=== PATIENT | male | born 1975 ===

== ENCOUNTER 2019-07-24 17:44 | Inpatient (IN) | payer OTHER ==
[~2019-07-24] VITALS: Ht 175.3 cm; Wt 52.4 kg
[2019-07-24] MEDS ORDERED: GENVOYA TABLET1 EACH PO (18:10)
[2019-07-24 18:55] LABS: BASO % 0.1 % (0.0-2.0); EOS # 0.3 (0.0-0.7); EOS % 1.4 % (0-4.0); GRAN # 15.1 (1.4-6.5); GRAN % 80.9 % (42.2-75.2); HEMOGLOBIN 12.6 g/dl (13.5-18.0); LYMPH # 1.9 (1.2-3.4); LYMPH % 10.1 % (20.0-51.0); MEAN CELL VOLUME 93 fl (80.0-100.0); MEAN CORPUSCULAR HEMOGLOBIN 31 pg (27.0-31.0); MEAN CORPUSCULAR HGB CONC 33 g/dl (33.0-37.0); MEAN PLATELET VOLUME 9.2 fl (7.4-10.4); MONO # 1.3 (0.1-0.6); PLATELET COUNT 407 K/mm3 (130-400); RED BLOOD COUNT 4.09 M/mm3 (4.20-5.60); REDCELL DISTRIBUTION WIDTH-CV 13.2 % (11.5-14.5)
[2019-07-24 19:10] LABS: ALBUMIN 4.1 gm/dL (3.5-5.0); BILIRUBIN,TOTAL 0.6 mg/dL (0.0-1.0); CALCIUM 9.3 mg/dL (8.4-10.2); CREATININE, serum 0.91 (0.66-1.25); POTASSIUM 3.7 mmol/L (3.4-5.0); TOTAL PROTEIN 7.6 gm/dL (6.4-8.2)
[2019-07-24 21:00] VITALS: BP 103/62; PULSE 107; TEMP 99.2
[2019-07-25] VITALS: BP 100/56; PULSE 76; TEMP 98.4
[2019-07-25 04:30] VITALS: BP 97/57; PULSE 87; TEMP 97.6
[2019-07-25 07:15] LABS: HEMOGLOBIN 11.9 g/dl (13.5-18.0); MEAN CELL VOLUME 94 fl (80.0-100.0); MEAN CORPUSCULAR HEMOGLOBIN 31 pg (27.0-31.0); MEAN CORPUSCULAR HGB CONC 33 g/dl (33.0-37.0); MEAN PLATELET VOLUME 9.6 fl (7.4-10.4); PLATELET COUNT 391 K/mm3 (130-400); RED BLOOD COUNT 3.88 M/mm3 (4.20-5.60); REDCELL DISTRIBUTION WIDTH-CV 13.4 % (11.5-14.5)
[2019-07-25 07:16] LABS: HEMATOCRIT 36.4 % (42.0-52.0)
[2019-07-25 07:37] LABS: CALCIUM 8.3 mg/dL (8.4-10.2); CREATININE, serum 0.79 (0.66-1.25); POTASSIUM 4.1 mmol/L (3.4-5.0)
[2019-07-25 07:50] VITALS: BP 99/59; PULSE 75; TEMP 98
[2019-07-25 10:22] LABS: PH 6 (5-8); SQUAMOUS EPITHELIAL None Seen /hpf; URINE APPEARANCE Clear; URINE BACTERIA None Seen /hpf; URINE BILIRUBIN Negative (NEGATIVE); URINE BLOOD Negative (NEGATIVE); URINE COLOR Yellow; URINE GLUCOSE Negative (NEGATIVE); URINE KETONE Negative (NEGATIVE); URINE LEUKOCYTE ESTERASE Negative (NEGATIVE); URINE NITRATE Negative (NEGATIVE); URINE PROTEIN(semi-quant) Negative (NEGATIVE); URINE RBC 0-2 /hpf; URINE UROBILINOGEN Negative (NEGATIVE)
[2019-07-25 10:32] LABS: COLLECTION METHOD CLEAN CATCH
[2019-07-25 10:45] LABS: TRICYCLIC ANTIDEPRESS URINE NEGATIVE
[2019-07-25 11:56] VITALS: BP 108/70; PULSE 73; TEMP 97.7
[2019-07-25 15:01] VITALS: BP 99/62; PULSE 82; TEMP 97.8
[2019-07-25 19:45] VITALS: BP 106/63; PULSE 79; TEMP 98.3
[2019-07-26 00:10] VITALS: BP 99/56; PULSE 78; TEMP 98
[2019-07-26 05:00] VITALS: BP 102/58; PULSE 78; TEMP 97.7
[2019-07-26 06:12] LABS: BASO % 0.1 % (0.0-2.0); EOS # 0.3 (0.0-0.7); EOS % 4.1 % (0-4.0); GRAN # 4.5 (1.4-6.5); GRAN % 62.6 % (42.2-75.2); HEMOGLOBIN 12.3 g/dl (13.5-18.0); LYMPH # 1.8 (1.2-3.4); LYMPH % 24.8 % (20.0-51.0); MEAN CELL VOLUME 95 fl (80.0-100.0); MEAN CORPUSCULAR HEMOGLOBIN 31 pg (27.0-31.0); MEAN CORPUSCULAR HGB CONC 32 g/dl (33.0-37.0); MEAN PLATELET VOLUME 9.4 fl (7.4-10.4); MONO # 0.6 (0.1-0.6); PLATELET COUNT 382 K/mm3 (130-400); RED BLOOD COUNT 4.01 M/mm3 (4.20-5.60); REDCELL DISTRIBUTION WIDTH-CV 13.4 % (11.5-14.5)
[2019-07-26 06:31] LABS: CALCIUM 8.7 mg/dL (8.4-10.2); CREATININE, serum 0.68 (0.66-1.25); POTASSIUM 4.1 mmol/L (3.4-5.0)
[2019-07-26 07:23] VITALS: BP 102/74; PULSE 82; TEMP 97.4
[2019-07-26 09:32] LABS: T HELPER (CD4) INDUCER CELLS 36.3 % (29.0-59.0)
[2019-07-26 11:41] VITALS: BP 122/62; PULSE 77; TEMP 97.8
[2019-07-26 16:27] VITALS: BP 105/63; PULSE 75; TEMP 98
[2019-07-26 20:34] VITALS: BP 106/59; PULSE 72; TEMP 97.4
[2019-07-27 00:06] VITALS: BP 95/61; PULSE 72; TEMP 97.4
[2019-07-27 04:34] VITALS: BP 11/62; PULSE 61; TEMP 97.7
[2019-07-27 06:37] LABS: BASO % 0.6 % (0.0-2.0); EOS # 0.3 (0.0-0.7); EOS % 6.4 % (0-4.0); GRAN # 2.5 (1.4-6.5); GRAN % 49.5 % (42.2-75.2); HEMATOCRIT 42.5 % (42.0-52.0); HEMOGLOBIN 13.7 g/dl (13.5-18.0); LYMPH # 1.8 (1.2-3.4); LYMPH % 35.5 % (20.0-51.0); MEAN CELL VOLUME 95 fl (80.0-100.0); MEAN CORPUSCULAR HEMOGLOBIN 31 pg (27.0-31.0); MEAN CORPUSCULAR HGB CONC 32 g/dl (33.0-37.0); MEAN PLATELET VOLUME 9.5 fl (7.4-10.4); MONO # 0.4 (0.1-0.6); MONO % 7.6 % (1.7-9.3); PLATELET COUNT 422 K/mm3 (130-400); RED BLOOD COUNT 4.46 M/mm3 (4.20-5.60); REDCELL DISTRIBUTION WIDTH-CV 13.5 % (11.5-14.5)
[2019-07-27 06:55] LABS: CALCIUM 9.7 mg/dL (8.4-10.2); CREATININE, serum 0.79 (0.66-1.25); POTASSIUM 4.4 mmol/L (3.4-5.0)
[2019-07-27 07:38] VITALS: BP 111/71; PULSE 78; TEMP 97.8
[2019-07-27] MEDS ORDERED: ZITHROMAX 250M250 MG PO (09:31)
== END 2019-07-27 11:00 | disposition home or self-care (01) | DRG 202 ==
LOC: COL.ER 17:44 → MEDICAL 20:22
PROVIDERS: Emergency Medicine; Physician Assistant; ADMIT Student in an Organized Health Care Education/Training Program
DX: J40 Bronchitis, not specified as acute or chronic (principal); E46 Unspecified protein-calorie malnutrition; R65.10 Systemic inflammatory response syndrome (SIRS) of non-infectious origin without acute organ dysfunction; Z21 Asymptomatic human immunodeficiency virus [HIV] infection status; F17.210 Nicotine dependence, cigarettes, uncomplicated; Z88.5 Allergy status to narcotic agent
CPT/HCPCS: 99231-AI; 99232-AI; 99239; A4216; J0692; J0696; J1650; J2543; J3370; J7030; J7050

== ENCOUNTER 2020-02-28 19:32 | Emergency (ER) | payer OTHER ==
[~2020-02-28] VITALS: Ht 175.3 cm; Wt 58.2 kg
[~2020-02-28 19:32] MED LIST: GENVOYA TABLET1 EACH PO; ZITHROMAX 250M250 MG PO
[2020-02-28 20:12] LABS: BASO % 0.4 % (0.0-2.0); EOS # 0.8 (0.0-0.7); EOS % 11.1 % (0-4.0); GRAN # 2.8 (1.4-6.5); GRAN % 39.4 % (42.2-75.2); HEMATOCRIT 44.1 % (42.0-52.0); HEMOGLOBIN 14.6 g/dl (13.5-18.0); LYMPH % 42.9 % (20.0-51.0); MEAN CELL VOLUME 95 fl (80.0-100.0); MEAN CORPUSCULAR HEMOGLOBIN 32 pg (27.0-31.0); MEAN CORPUSCULAR HGB CONC 33 g/dl (33.0-37.0); MEAN PLATELET VOLUME 9.6 fl (7.4-10.4); MONO # 0.4 (0.1-0.6); MONO % 6.1 % (1.7-9.3); PLATELET COUNT 320 K/mm3 (130-400); RED BLOOD COUNT 4.64 M/mm3 (4.20-5.60); REDCELL DISTRIBUTION WIDTH-CV 12.8 % (11.5-14.5)
[2020-02-28 20:24] LABS: ALANINE AMINOTRANSFERASE 17 U/L (4-49); ALBUMIN 4.7 gm/dL (3.5-5.0); ALKALINE PHOSPHATASE 58 U/L (50-136); ANION GAP 8 mmol/L (7-16); AST,SGOT 30 U/L (15-37); BILIRUBIN,TOTAL 0.5 mg/dL (0.0-1.0); BLOOD UREA NITROGEN 9 mg/dL (9-20); C-REACTIVE PROTEIN 0.6 mg/dL (0.0-0.9); CALCIUM 9.8 mg/dL (8.4-10.2); CARBON DIOXIDE 22 mmol/L (22-30); CHLORIDE 106 mmol/L (98-107); CREATININE, serum 0.81 (0.66-1.25); GLUCOSE 89 mg/dL (74-106); POTASSIUM 4.2 mmol/L (3.4-5.0); SODIUM 136 mmol/L (137-145); TOTAL PROTEIN 8.1 gm/dL (6.4-8.2)
[2020-02-28 20:35] LABS: TROPONIN-I < 0.012 ng/mL (0.000-0.035)
[2020-02-28] MEDS ORDERED: ZITHROMAX 250M250 MG PO (22:14)
[2020-02-28 22:28] VITALS: BP 129/91; PULSE 86; TEMP 97.7
== END 2020-02-28 22:36 | disposition home or self-care (01) ==
LOC: COL.ER 19:32
PROVIDERS: Emergency Medicine
DX: J20.9 Acute bronchitis, unspecified (principal); Z20.828 Contact with and (suspected) exposure to other viral communicable diseases; Z21 Asymptomatic human immunodeficiency virus [HIV] infection status

== ENCOUNTER 2021-01-31 10:33 | Observation (INO) | payer OTHER ==
[~2021-01-31] VITALS: Ht 175.3 cm; Wt 59.5 kg
[2021-01-31 14:00] LABS: BASO % 0.3 % (0.0-2.0); EOS # 0.4 (0.0-0.7); EOS % 4.3 % (0-4.0); GRAN # 6.8 (1.4-6.5); GRAN % 66.8 % (42.2-75.2); HEMATOCRIT 43.8 % (42.0-52.0); HEMOGLOBIN 14.5 g/dl (13.5-18.0); LYMPH % 19.8 % (20.0-51.0); MEAN CELL VOLUME 95 fl (80.0-100.0); MEAN CORPUSCULAR HEMOGLOBIN 32 pg (27.0-31.0); MEAN CORPUSCULAR HGB CONC 33 g/dl (33.0-37.0); MEAN PLATELET VOLUME 9.7 fl (7.4-10.4); MONO # 0.9 (0.1-0.6); MONO % 8.5 % (1.7-9.3); PLATELET COUNT 298 K/mm3 (130-400); RED BLOOD COUNT 4.61 M/mm3 (4.20-5.60); REDCELL DISTRIBUTION WIDTH-CV 12.5 % (11.5-14.5)
[2021-01-31 14:35] LABS: ALBUMIN 4.2 gm/dL (3.5-5.0); BILIRUBIN,TOTAL 0.2 mg/dL (0.0-1.0); CALCIUM 9.4 mg/dL (8.4-10.2); CREATININE, serum 0.87 (0.66-1.25); TOTAL PROTEIN 8.3 gm/dL (6.4-8.2)
--- NOTE | 2021-01-31 19:16 | NUR ---
RECIEVED REPORT FROM ED NURSE, MASSIEL. WAITING PATIENT ARRIVAL FOR ADMIT TO ROOM 343.
[2021-01-31 19:54] VITALS: BP 118/77; PULSE 78; TEMP 97.6
--- NOTE | 2021-01-31 20:02 | NUR ---
PATIENT VERBALIZED UNDERSTANDING OF CLEAN CATCH UA INSTRUCTIONS WITH NO OTHER QUESTIONS.
--- NOTE | 2021-01-31 20:11 | NUR ---
DENIES CHEST PAIN/SHORTNESS OF BREATH. DENIES ANY NEEDS OR DISCOMFORT AT THIS TIME. IV IN PLACE, NO IVF RUNNING AT THIS TIME.
--- NOTE | 2021-01-31 21:16 | NUR ---
URINE SPECIMENT COLLECTED PER E.D. ORDERS, SPECIMEN SENT TO LAB
[2021-01-31 21:22] LABS: COLLECTION METHOD CLEAN CATCH
[2021-01-31 21:42] LABS: MUCOUS Present /lpf; PH 6 (5-8); SQUAMOUS EPITHELIAL None Seen /hpf; URINE APPEARANCE Clear; URINE BACTERIA None Seen /hpf; URINE BILIRUBIN Negative (NEGATIVE); URINE BLOOD Negative (NEGATIVE); URINE COLOR Yellow; URINE GLUCOSE Negative (NEGATIVE); URINE KETONE Negative (NEGATIVE); URINE LEUKOCYTE ESTERASE Negative (NEGATIVE); URINE NITRATE Negative (NEGATIVE); URINE PROTEIN(semi-quant) Negative (NEGATIVE); URINE UROBILINOGEN >=4.0 mg/dL (NEGATIVE)
[2021-02-01 00:10] VITALS: BP 113/64; PULSE 85; TEMP 97.6
--- NOTE | 2021-02-01 01:57 | NUR ---
CONTINUES TO DENIES CHEST PAIN/SOA. REPORT STOMACH DISCOMFORT, REPORTS NO ACTIVE NAUSEA AT THIS TIME. SLEEPING WHEN NOT INTERACTING WITH STAFF. REFUSES OFFER OF ORAL LIQUIDS STILL. REPORTS NO NAUSEA IF NOT MOVING, AT THIS TIME.
[2021-02-01 04:05] VITALS: BP 102/58; PULSE 72; TEMP 97
[2021-02-01 06:09] LABS: BASO % 0.3 % (0.0-2.0); EOS # 0.4 (0.0-0.7); GRAN # 3.8 (1.4-6.5); GRAN % 55.6 % (42.2-75.2); HEMATOCRIT 37.8 % (42.0-52.0); LYMPH # 1.8 (1.2-3.4); MEAN CELL VOLUME 97 fl (80.0-100.0); MEAN CORPUSCULAR HEMOGLOBIN 32 pg (27.0-31.0); MEAN CORPUSCULAR HGB CONC 33 g/dl (33.0-37.0); MEAN PLATELET VOLUME 9.9 fl (7.4-10.4); MONO # 0.8 (0.1-0.6); MONO % 11.8 % (1.7-9.3); PLATELET COUNT 284 K/mm3 (130-400); RED BLOOD COUNT 3.91 M/mm3 (4.20-5.60); REDCELL DISTRIBUTION WIDTH-CV 12.5 % (11.5-14.5)
[2021-02-01 06:13] LABS: HEMOGLOBIN 12.4 g/dl (13.5-18.0)
[2021-02-01 06:23] LABS: ALBUMIN 3.3 gm/dL (3.5-5.0); BILIRUBIN,TOTAL 0.2 mg/dL (0.0-1.0); CALCIUM 8.6 mg/dL (8.4-10.2); CREATININE, serum 0.81 (0.66-1.25); POTASSIUM 4.1 mmol/L (3.4-5.0); TOTAL PROTEIN 6.4 gm/dL (6.4-8.2)
--- NOTE | 2021-02-01 07:04 | NUR ---
CHANGE OF SHIFT REPORT GIVEN TO DAY SHIFT NURSEKRISTIN RN ACCOMPANIED BY STUDENT NURSE.
[2021-02-01 07:22] VITALS: BP 99/71; PULSE 78; TEMP 97.7
[2021-02-01 09:37] LABS: CD4 CD8 Ratio 1.16 (1.00-2.90); CD4 Helper T Cell 42.5 % (29.0-59.0); CD8 Suppressor T Cells 36.5 % (18.0-36.0); Lymphocyte,Absolute 1739 mm3 (1500-4000)
--- NOTE | 2021-02-01 10:00 | NUR ---
Patient resting in bed at this time, alert and oriented, answers questions appropriately. Patient has been ambulating in the halls, denies pain or needs, call light within reach.
[2021-02-01 12:00] VITALS: BP 119/72; PULSE 70; TEMP 99
[2021-02-01] MEDS ORDERED: AMOXICILLIN 8751 TAB PO (13:23)
[2021-02-01] MEDS ORDERED: ZOFRAN ODT4 MG PO (13:23)
--- NOTE | 2021-02-01 13:23 | NUR ---
Circulator met with patient to discuss discharge planning. Patient lives alone in [place]. Patient's mother, Lelo (ph#[phone]) is at bedside and stated she lives just one building over from patient. Patient sees Dr. Weeks for primary care and obtains medications from [facility] on [address] with no difficulties. Patient does not use any DME and is independent with [facility]. Patient states that he has previously completed [facility]- paperwork that designates his sister, Carola (ph#[phone]) but SW could not locate a copy in EMR. Discharge Plan: Home
--- NOTE | 2021-02-01 15:30 | NUR ---
Discharge teaching completed. Discussed discharge medicaitons, discharge appointments, and instructions. Patient verbalized understanding. INT removed, catheter intact, hemostasis achieved. Patient confirmed all belongings were gathered and patient was escorted to ED entrance where he entered a private vehicle.
[2021-02-05 14:15] LABS: HIV 1 RNA IU <40 (<=39); HIV 1 RNA LOG Detected <1.60 Log/mL (<=1.59)
== END 2021-02-01 15:30 | disposition home or self-care (01) ==
LOC: COL.ER 10:33 → SURG 16:45
PROVIDERS: Emergency Medicine
DX: K63.0 Abscess of intestine (principal); Z21 Asymptomatic human immunodeficiency virus [HIV] infection status; F17.210 Nicotine dependence, cigarettes, uncomplicated; Z79.899 Other long term (current) drug therapy
CPT/HCPCS: 99232-AI; G0008; G0378; J0696; J1885; J3480; J7030; Q9967